=== PATIENT | male | born 1960 | race Caucasian/White ===

== ENCOUNTER → 2019-06-13 | Outpatient (CLI) | payer BC ==
[~2019-06-13] MED LIST: ALBU90OI INH; ALPR.5 PO; AMLO10 PO; AZIT500 PO; BENZ100A PO; CELE200 PO; CYCL10 PO; DULO30; DULO60 PO; ESCI10; HYDACE5 PO; IBUP400 PO; LOSARTAN-HCTZ1 EAC2 PO; OLME20-12. PO; RXCYCL10 PO
[2019-06-13 18:40] LABS: BASOPHILS ABSOLUTE AUTO 0.04 K/mm3 (0.00-0.23); BASOPHILS PERCENT AUTO 0 % (0-2); EOSINOPHILS ABSOLUTE AUTO 0.07 K/mm3 (0.00-0.68); EOSINOPHILS PERCENT AUTO 1 % (0-6); Hemoglobin 14.7 g/dL (13.5-17.5); IMMATURE GRAN ABSOLUTE AUTO 0.02 K/mm3 (0.00-0.10); IMMATURE GRAN PERCENT AUTO 0 % (0-1); LYMPHOCYTES ABSOLUTE AUTO 1.18 K/mm3 (0.84-5.20); LYMPHOCYTES PERCENT AUTO 11 % (21-46); MONOCYTES ABSOLUTE AUTO 1.06 K/mm3 (0.16-1.47); MONOCYTES PERCENT AUTO 10 % (4-13); Mean Corpuscular HGB 30.2 pg (26.0-34.0); Mean Corpuscular HGB Conc 33.4 g/dL (31.5-36.5); Mean Corpuscular Volume 91 fL (80-100); Mean Platelet Volume 12.5 fL (9.1-12.4); NEUTROPHILS PERCENT AUTO 78 % (41-73); Platelet Count 182 K/mm3 (150-400); RDW Coefficient Variation 12.2 % (11.7-14.2); RDW Standard Deviation 40.6 fL (35.1-46.3); Red Blood Cell Count 4.86 M/mm3 (4.30-5.90); White Blood Cell Count 10.77 K/mm3 (4.00-11.30)
[2019-06-13 18:56] LABS: Alanine Aminotransfer (ALT/SGP 27 U/L (12-78); Albumin, Blood 3.8 g/dL (3.4-5.0); Alk Phos 112 U/L (50-136); Anion Gap 6 mmol/L (6-16); Aspartate Aminotrans (AST/SGOT 15 U/L (12-37); Bilirubin, Total 0.5 mg/dL (0.1-1.0); Blood Urea Nitrogen 12 mg/dL (8-24); Bun/Creatinine Ratio 16.3 (12.0-20.0); CO2, Blood 25 mmol/L (21-32); Calcium, Blood 8.6 mg/dL (8.5-10.1); Chloride, Blood 107 mmol/L (98-108); Creatinine, Blood 0.73 mg/dL (0.60-1.20); Globulin, Blood 3.7 g/dL (2.2-4.0); Glomerular Filtration Rate >60 (60-); Glucose, Blood 121 mg/dL (70-99); Potassium, Blood 3.9 mmol/L (3.5-5.5); Sodium, Blood 138 mmol/L (136-145); Total Protein, Blood 7.5 g/dL (6.4-8.2)
== END ==
LOC: LAB SHORT 18:05 → LAB 18:05
PROVIDERS: Nurse Practitioner
DX: R50.9 Fever, unspecified (principal); R30.0 Dysuria
CPT/HCPCS: 80053; 85025; 87086

== ENCOUNTER 2020-09-01 08:09 | Day surgery (SDC) | payer BC ==
[~2020-09-01] VITALS: Ht 185.4 cm; Wt 102.0 kg
[~2020-09-01 08:09] MED LIST changes: +ASPIR 8181 M1 PO; +LOSA25 PO; +METO25ER PO; +OMEP20ER PO; +QUIN10; +TIZA4 PO; +ZOLP10 PO
--- NOTE | 2020-09-01 13:39 | NUR ---
2 CC AIR REMOVED FROM TR BAND. SLIGHT BLOOD AT SITE.
--- NOTE | 2020-09-01 13:40 | NUR ---
DRESSED FOR DISCHARGE.
--- NOTE | 2020-09-01 13:56 | NUR ---
ADDITIONAL AIR REMOVED FROM TR BAND. NO BLEEDING AT SITE.
--- NOTE | 2020-09-01 14:15 | NUR ---
DISCHARGE INSTRUCTIONS GIVEN WITH VERBAL AND WRITTEN UNDERSTANDING.
--- NOTE | 2020-09-01 14:44 | NUR ---
IV REMOVED INTACT. 2X2, COBAN AND MANUAL PRESSURE HELD.
--- NOTE | 2020-09-01 14:50 | NUR ---
TR BAND REMOVED. NO BLEEDING AT SITE. CLOTH DOT, IMMOBILIZER AND SLING APPLIED.
--- NOTE | 2020-09-01 15:09 | NUR ---
DISCHARGED HOME VIA WHEELCHAIR. GIRLFRIEND DRIVING.
== END 2020-09-01 15:03 | disposition home or self-care (01) ==
LOC: MHTC 08:09
DX: I47.1 Supraventricular tachycardia (principal); I47.2 Ventricular tachycardia; I10 Essential (primary) hypertension; E11.9 Type 2 diabetes mellitus without complications; E78.5 Hyperlipidemia, unspecified; F32.9 Major depressive disorder, single episode, unspecified; F41.9 Anxiety disorder, unspecified; F17.210 Nicotine dependence, cigarettes, uncomplicated; G47.00 Insomnia, unspecified; J30.2 Other seasonal allergic rhinitis; E66.9 Obesity, unspecified; Z68.31 Body mass index [BMI] 31.0-31.9, adult
CPT/HCPCS: 76937; 93005; 93010; 93458; 99152; 99153; C1769; C1894; J1644; J2250; J3010; J7030; J7050; Q9967

== ENCOUNTER 2021-01-01 06:09 | Emergency (ER) | payer BC ==
[~2021-01-01] VITALS: Ht 185.4 cm; Wt 102.5 kg
[2021-01-01] MEDS ORDERED: GABA100 PO (06:27)
[2021-01-01 07:07] LABS: BASOPHILS ABSOLUTE AUTO 0.01 K/mm3 (0.00-0.23); BASOPHILS PERCENT AUTO 0 % (0-2); EOSINOPHILS ABSOLUTE AUTO 0.01 K/mm3 (0.00-0.68); EOSINOPHILS PERCENT AUTO 0 % (0-6); Hematocrit 44.1 % (37.0-53.0); IMMATURE GRAN ABSOLUTE AUTO 0.01 K/mm3 (0.00-0.10); IMMATURE GRAN PERCENT AUTO 0 % (0-1); LYMPHOCYTES ABSOLUTE AUTO 0.76 K/mm3 (0.84-5.20); LYMPHOCYTES PERCENT AUTO 16 % (21-46); MONOCYTES ABSOLUTE AUTO 0.47 K/mm3 (0.16-1.47); MONOCYTES PERCENT AUTO 10 % (4-13); Mean Corpuscular HGB 29.4 pg (26.0-34.0); Mean Corpuscular Volume 87 fL (80-100); Mean Platelet Volume 10.8 fL (9.1-12.4); NEUTROPHILS ABSOLUTE AUTO 3.46 K/mm3 (1.96-9.15); NEUTROPHILS PERCENT AUTO 73 % (41-73); Platelet Count 136 K/mm3 (150-400); RDW Coefficient Variation 12.6 % (11.7-14.2); RDW Standard Deviation 40.1 fL (35.1-46.3); White Blood Cell Count 4.72 K/mm3 (4.00-11.30)
[2021-01-01 07:17] LABS: Alanine Aminotransfer (ALT/SGP 38 U/L (12-78); Albumin, Blood 3.8 g/dL (3.4-5.0); Albumin/Globulin Ratio 1.1 (0.8-1.8); Alk Phos 87 U/L (50-136); Anion Gap 5 mmol/L (6-16); Aspartate Aminotrans (AST/SGOT 34 U/L (12-37); Bilirubin, Total 0.6 mg/dL (0.1-1.0); Blood Urea Nitrogen 9 mg/dL (8-24); Bun/Creatinine Ratio 11.9 (12.0-20.0); CO2, Blood 23 mmol/L (21-32); Calcium, Blood 8.1 mg/dL (8.5-10.1); Chloride, Blood 105 mmol/L (98-108); Creatinine, Blood 0.75 mg/dL (0.60-1.20); Globulin, Blood 3.4 g/dL (2.2-4.0); Glomerular Filtration Rate >60 (60-); Glucose, Blood 91 mg/dL (70-99); Potassium, Blood 3.8 mmol/L (3.5-5.5); Sodium, Blood 133 mmol/L (136-145); Total Protein, Blood 7.2 g/dL (6.4-8.2)
[2021-01-01 09:00] LABS: Source, Urine Clean Catch
[2021-01-01 09:07] LABS: Bilirubin, Urine Neg (Neg); Blood, Urine Neg (Neg); Glucose Qualitative, Urine Neg (Neg); Ketones, Urine 1+ (Neg); Leukocyte Esterase, Urine Neg (Neg); Nitrite, Urine Neg (Neg); Protein, Urine Neg (Neg); Urobilinogen, Urine NORM (Normal); pH, Urine 6.5 (5.0-8.0)
[2021-01-01 09:12] LABS: Appearance, Urine Clear (Clear); Color, Urine Pale Yellow (P-Yellow)
[2021-01-01] MEDS ORDERED: LEVO750 PO (09:33)
== END 2021-01-01 10:23 | disposition home or self-care (01) ==
LOC: ER 06:09
PROVIDERS: Emergency Medicine
DX: J18.9 Pneumonia, unspecified organism (principal); N28.1 Cyst of kidney, acquired; Z79.82 Long term (current) use of aspirin; Z79.899 Other long term (current) drug therapy; Z88.2 Allergy status to sulfonamides; Z88.1 Allergy status to other antibiotic agents; Z88.6 Allergy status to analgesic agent
CPT/HCPCS: 36415; 71046; 74177; 80053; 81003; 85025; 93005; 93010; 96374-59; 99284-25; A9270; J3010; J7030; Q9967

== ENCOUNTER 2021-01-04 09:04 | Emergency (ER) | payer BC ==
[~2021-01-04] VITALS: Ht 185.4 cm; Wt 100.2 kg
[~2021-01-04 09:04] MED LIST changes: +GABA100 PO; +LEVO750 PO
[2021-01-04 09:47] LABS: BASOPHILS ABSOLUTE AUTO 0.01 K/mm3 (0.00-0.23); BASOPHILS PERCENT AUTO 0 % (0-2); EOSINOPHILS PERCENT AUTO 0 % (0-6); Hematocrit 43.4 % (37.0-53.0); Hemoglobin 14.7 g/dL (13.5-17.5); IMMATURE GRAN ABSOLUTE AUTO 0.01 K/mm3 (0.00-0.10); IMMATURE GRAN PERCENT AUTO 0 % (0-1); LYMPHOCYTES ABSOLUTE AUTO 0.53 K/mm3 (0.84-5.20); LYMPHOCYTES PERCENT AUTO 10 % (21-46); MONOCYTES ABSOLUTE AUTO 0.25 K/mm3 (0.16-1.47); MONOCYTES PERCENT AUTO 5 % (4-13); Mean Corpuscular HGB 29.5 pg (26.0-34.0); Mean Corpuscular HGB Conc 33.9 g/dL (31.5-36.5); Mean Corpuscular Volume 87 fL (80-100); Mean Platelet Volume 10.9 fL (9.1-12.4); NEUTROPHILS ABSOLUTE AUTO 4.44 K/mm3 (1.96-9.15); NEUTROPHILS PERCENT AUTO 85 % (41-73); Platelet Count 132 K/mm3 (150-400); RDW Coefficient Variation 12.5 % (11.7-14.2); RDW Standard Deviation 40.1 fL (35.1-46.3); Red Blood Cell Count 4.99 M/mm3 (4.30-5.90); White Blood Cell Count 5.24 K/mm3 (4.00-11.30)
[2021-01-04 10:01] LABS: Source, Urine Clean Catch
[2021-01-04 10:01] LABS: Alanine Aminotransfer (ALT/SGP 31 U/L (12-78); Albumin, Blood 3.4 g/dL (3.4-5.0); Alk Phos 82 U/L (50-136); Anion Gap 9 mmol/L (6-16); Aspartate Aminotrans (AST/SGOT 30 U/L (12-37); Bilirubin, Total 0.7 mg/dL (0.1-1.0); Blood Urea Nitrogen 10 mg/dL (8-24); CO2, Blood 22 mmol/L (21-32); Calcium, Blood 8.1 mg/dL (8.5-10.1); Chloride, Blood 102 mmol/L (98-108); Creatinine, Blood 0.72 mg/dL (0.60-1.20); Globulin, Blood 3.5 g/dL (2.2-4.0); Glomerular Filtration Rate >60 (60-); Glucose, Blood 133 mg/dL (70-99); Potassium, Blood 3.4 mmol/L (3.5-5.5); Sodium, Blood 133 mmol/L (136-145); Total Protein, Blood 6.9 g/dL (6.4-8.2)
[2021-01-04 10:29] LABS: Appearance, Urine Clear (Clear); Bilirubin, Urine Neg (Neg); Blood, Urine Neg (Neg); Color, Urine Yellow (P-Yellow); Glucose Qualitative, Urine Neg (Neg); Ketones, Urine 1+ (Neg); Leukocyte Esterase, Urine Neg (Neg); Nitrite, Urine Neg (Neg); Protein, Urine Neg (Neg); Urobilinogen, Urine NORM (Normal)
[2021-01-04 10:46] LABS: SARS-Cov-2 (COVID-19) PCR, MMC POSITIVE (NEGATIVE)
[2021-01-04] MEDS ORDERED: ONDA4ODT MM (11:55)
== END 2021-01-04 11:53 | disposition home or self-care (01) ==
LOC: ER 09:04
PROVIDERS: Emergency Medicine
DX: U07.1 COVID-19 (principal); I10 Essential (primary) hypertension; Z88.2 Allergy status to sulfonamides; Z88.6 Allergy status to analgesic agent; Z88.8 Allergy status to other drugs, medicaments and biological substances; Z79.899 Other long term (current) drug therapy
CPT/HCPCS: 36415; 71045; 80053; 81003; 83690; 83880; 85025; 93005; 93010; 99284-25; U0004

== ENCOUNTER 2024-04-02 06:51 | Day surgery (SDC) | payer BC ==
[~2024-04-02] VITALS: Ht 185.4 cm; Wt 115.1 kg
[~2024-04-02 06:51] MED LIST changes: +Lactated Ringer's 1,000 ML ONE; +ONDA4ODT MM
[2024-04-02] MEDS ORDERED: Bystolic2.5 MG (07:10)
[2024-04-02] MEDS ORDERED: CYMBALTA20 M1 (07:11)
[2024-04-02] MEDS ORDERED: HYDSUL200 (07:11)
[2024-04-02] MEDS ORDERED: propofoL 50 ML IV ONE (07:53)
[2024-04-02] MEDS ORDERED: Lactated Ringer's 1,000 ML IV ONE (08:09)
[2024-04-02 08:58] VITALS: BP 112/71
== END 2024-04-02 08:58 | disposition home or self-care (01) ==
LOC: ORSCSDS 06:51
PROVIDERS: Internal Medicine Gastroenterology
PROC: 0D758ZZ Dilation of Esophagus, Via Natural or Artificial Opening Endoscopic (ICD-10-PCS; principal; 2024-04-02 08:00)
PROC: 0DJ08ZZ Inspection of Upper Intestinal Tract, Via Natural or Artificial Opening Endoscopic (ICD-10-PCS; principal; 2024-04-02 08:00)
DX: R13.10 Dysphagia, unspecified (principal); K21.9 Gastro-esophageal reflux disease without esophagitis; I10 Essential (primary) hypertension; G47.33 Obstructive sleep apnea (adult) (pediatric); I25.10 Atherosclerotic heart disease of native coronary artery without angina pectoris; M79.7 Fibromyalgia; Z79.82 Long term (current) use of aspirin; Z79.899 Other long term (current) drug therapy; Z87.891 Personal history of nicotine dependence
CPT/HCPCS: J2704

== ENCOUNTER 2024-06-11 07:40 | Day surgery (SDC) | payer BC ==
[~2024-06-11] VITALS: Ht 185.4 cm; Wt 116.3 kg
[~2024-06-11 07:40] MED LIST changes: +Bystolic2.5 MG; +CYMBALTA20 M1; +HYDSUL200; +Lactated Ringer's 1,000 ML IV ONE; -Lactated Ringer's 1,000 ML ONE
[2024-06-11] MEDS ORDERED: Lactated Ringer's 1,000 ML IV ONE (08:00)
[2024-06-11] MEDS ORDERED: HYDROmorphone HCl/Pf 1MG SYR ONE (08:32)
[2024-06-11] MEDS ORDERED: CeFAZolin Sodium 2,000 MG VIAL ONE (08:47)
[2024-06-11] MEDS ORDERED: NS 50 ML IV ONE (08:47)
[2024-06-11] MEDS ORDERED: propofoL 40 ML IV ONE (09:24)
[2024-06-11] MEDS ORDERED: Midazolam HCl 1MG / ML 2ML Vial ONE (09:25)
[2024-06-11 10:36] VITALS: BP 123/78
--- NOTE | 2024-06-11 11:38 | NUR ---
06/11/24 1138 QUE CAMPOS PT UP TO BR PRIOR TO DC. WENT OVER INSTRUCTIONS WITH PT AND WHO IS A NURSE. ANSWERED ALL QUESTIONS. SLING WAS GIVEN PT FREQUENTLY WANTING TO USE HIS HAND, INCLUDING TO PUSH UP FROM CHAIR. WAS IN AGREEMENT PT HAVING A SLING. VERY PLEASANT PT AND .
== END 2024-06-11 11:30 | disposition home or self-care (01) ==
LOC: ORSCSDS 07:40
PROVIDERS: Orthopaedic Surgery
PROC: 01N50ZZ Release Median Nerve, Open Approach (ICD-10-PCS; principal; 2024-06-11 09:00)
DX: G56.02 Carpal tunnel syndrome, left upper limb (principal); M19.042 Primary osteoarthritis, left hand; I10 Essential (primary) hypertension; E78.5 Hyperlipidemia, unspecified; Z79.82 Long term (current) use of aspirin; Z87.891 Personal history of nicotine dependence; G47.33 Obstructive sleep apnea (adult) (pediatric); E11.9 Type 2 diabetes mellitus without complications; F41.9 Anxiety disorder, unspecified; F32.A Depression, unspecified; Z79.899 Other long term (current) drug therapy
CPT/HCPCS: 82947; J0690; J1171; J2250; J2704; J7120

== ENCOUNTER → 2024-07-19 | Outpatient (CLI) | payer BC ==
[~2024-07-19] MED LIST changes: -Lactated Ringer's 1,000 ML IV ONE
[2024-07-19 12:51] LABS: Creatinine Urine 56.3 mg/dL (27.00-270.00); Microalbumin, Urine Quant. 7.55 mg/L (0.000-20.000); Protein, Urine Quantitative 6.1 mg/dL (0.0-11.9)
== END ==
LOC: LAB SHORT 08:40 → LAB 08:40 → LAB FUT 06-23 13:40
PROVIDERS: Internal Medicine Nephrology
DX: N18.2 Chronic kidney disease, stage 2 (mild) (principal); D63.1 Anemia in chronic kidney disease; N25.81 Secondary hyperparathyroidism of renal origin; E55.9 Vitamin D deficiency, unspecified; E78.00 Pure hypercholesterolemia, unspecified; R76.9 Abnormal immunological finding in serum, unspecified; R94.5 Abnormal results of liver function studies; R94.6 Abnormal results of thyroid function studies; D60.9 Acquired pure red cell aplasia, unspecified; D51.8 Other vitamin B12 deficiency anemias; D52.8 Other folate deficiency anemias; D50.9 Iron deficiency anemia, unspecified
CPT/HCPCS: 81050; 82043; 82570; 84156